=== PATIENT | female | born 1995 | race Caucasian/White ===

== ENCOUNTER → 2017-06-30 | Outpatient (CLI) | payer OTHER | END | disposition home or self-care (01) | LOC: LABWHC1 09:39 | PROVIDERS: ATTEND Pediatrics | DX: E03.9 Hypothyroidism, unspecified (principal) | CPT/HCPCS: 36415; 84443 ==

== ENCOUNTER → 2017-08-10 | Outpatient (CLI) | payer OTHER ==
--- NOTE | 2017-08-10 15:49 | US ---
EXAMINATION TYPE: US thyroid st tissue head/neck DATE OF EXAM: 08/10/2017 COMPARISON: Prior thyroid ultrasound July 04, 2010 CLINICAL HISTORY: E03.8 HYPOTHYROIDISM. Patient states being on thyroid meds. GLAND SIZE: Right Lobe: 4.8 x 1.7 x 1.4 cm Overall Parenchyma: heterogenous Left Lobe: 4.6 x 1.5 x 1.2 cm Overall Parenchyma: heterogeneous Isthmus Thickness: 0.3 cm NODULES RIGHT: # of nodules measured on right: 0 LEFT: # of nodules measured on left: 0 ISTHMUS: # of nodules measured in the isthmus: 0 Bilateral neck scanned, no evidence of lymphadenopathy. Bilateral thyroid lobes scanned. No prominent nodules or lesions identified. Both lobes appear hete rogenous. Thyroid gland remains normal in size but markedly heterogeneous appearance without discrete new suspi cious nodule. IMPRESSION: Overall stable findings, heterogeneous normal size thyroid without suspicious nodule.
== END | disposition home or self-care (01) ==
LOC: RADUSWWP 14:53
PROVIDERS: ATTEND Internal Medicine Endocrinology, Diabetes & Metabolism
DX: E03.8 Other specified hypothyroidism (principal)
CPT/HCPCS: 76536

== ENCOUNTER → 2017-09-08 | Outpatient (CLI) | payer OTHER ==
[2017-09-08 11:11] VITALS: BP 114/78; PULSE 64; RESP 16; TEMP 98.2; BMI 25.1
--- NOTE | 2017-09-08 12:10 | P.HPOB ---
History of Present Illness H&P Date: 09/08/17 Chief Complaint: The patient is here for her routine gynecologic exam. This is a 22-year-old G0 with an LMP of 08/22/2017. The patient has a history of polycystic ovarian syndrome and irregular menses. She was on the control patch in the past and had done well with the patch except she started having problems with the patch falling off during basketball games. She has been on oral contraception for the last 6 months. She states the 1st 2 months menses were predictable. She did have about 3 months with breakthrough bleeding during the 1st and 2nd week. This past month was normal without breakthrough bleeding. She is requesting to go back on the control patch since she is no longer playing competitive basketball. She became sexually active in March 2017, but was only with the partner for about one month. She is no longer seeing anybody at this time. Review of Systems Weight has been stable. She denies respiratory, cardiac, or G.I. problems. Past Medical History Past Medical History: Thyroid Disorder (Hypothyroidism following Yessenia's thyroiditis) Additional Past Medical History / Comment(s): History of headaches. 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 She does have a history of PCOS improved with hormonal contraception. Additional Past Surgical History / Comment(s): Oral surgery in 2000. Past Psychological History: No Psychological Hx Reported Smoking Status: Never smoker Past Alcohol Use History: Occasional (About 1 to 2 drinks per week.) Past Drug Use History: None Reported Additional History: Patient recently graduated from college with a business degree. She is single. She is currently managing a produce store. - Past Family History Mother Family Medical History: No Reported History Additional Family Medical History / Comment(s): Maternal grandmother had multiple myeloma. Paternal grandmother had breast cancer. Medications and Allergies Home Medications Medication Instructions Recorded Confirmed Type Drospir/Eth Estra/Levomefol Ca 1 each PO 09/08/17 History [Tydemy Tablet] Levothyroxine Sodium [Synthroid] DAILY 09/08/17 09/08/17 History Allergies Allergy/AdvReac Type Severity Reaction Status Date / Time No Known Allergies Allergy Verified 09/08/17 12:01 Exam - Vital Signs Vital signs: Vital Signs Temp Pulse Resp BP 09/08/17 11:02 98.2 F 64 16 114/78 Intake and Output 09/07/17 09/08/17 09/08/17 22:59 06:59 14:59 Other: Weight 81.647 kg Height 5'11", BMI 25.1. This is a well-developed well-nourished white female who is alert and oriented times 3 in no acute distress. HEENT: Within normal limits. NECK: Supple without mass or thyromegaly. CHEST AND LUNGS: Clear to auscultation. HEART: Regular rate and rhythm. BREASTS: Are without mass or discharge. AXILLARY EXAM: Negative for adenopathy. BACK: Negative for CVA tenderness. ABDOMEN: Soft, nontender, without palpable masses. PELVIC EXAM: Normal external genitalia. Cervix and vagina appear normal. There is no unusual discharge. There is no evidence of prolapse. The uterus is midposition, nongravid size and nontender. There are no palpable adnexal masses or tenderness. RECTAL EXAM: deferred EXTREMITIES: Nontender. IMPRESSION: 1. 22-year-old female with normal gynecologic exam. 2. History of PCOS with irregular menses improved with hormonal contraception. The patient has had occasional breakthrough bleeding with oral contraception. She is requesting to go back on the control patch. PLAN: 1. Pap smear was performed. 2. Self breast awareness was discussed. 3. GC and Chlamydia screening from the cervix has been obtained. 4. STD prevention was discussed. I have stressed the importance of limiting sexual partners and using condoms if she is to be sexually active. 5. The patient will be restarted on the Ortho Evra patch. She will use it as directed. She will start this point she normally would have started a new pack of control pills. An electronic prescription will be sent to [facility]. 6. We have discussed the HPV vaccination. If she decides to get this vaccination, she will go to the health department for this. 7. She will return in one year.
== END | disposition home or self-care (01) ==
LOC: WWCWWP 10:37
PROVIDERS: ATTEND Obstetrics & Gynecology
DX: Z01.419 Encounter for gynecological examination (general) (routine) without abnormal findings (principal); Z53.9 Procedure and treatment not carried out, unspecified reason

== ENCOUNTER → 2018-04-12 | Outpatient (CLI) | payer OTHER | LOC: LABWHC1 11:38 | PROVIDERS: ATTEND Internal Medicine Endocrinology, Diabetes & Metabolism | DX: E03.8 Other specified hypothyroidism (principal) | CPT/HCPCS: 36415; 84443 ==

== ENCOUNTER 2018-04-22 19:08 | Emergency (ER) | payer OTHER ==
[2018-04-22 19:30] VITALS: BP 130/76; PULSE 80; RESP 16; TEMP 98.2
--- NOTE | 2018-04-22 19:57 | ED ---
General Adult HPI - General Chief complaint: Extremity Injury, Lower Stated complaint: rt ankle injury Time Seen by Provider: 04/22/18 19:47 Source: patient, RN notes reviewed Mode of arrival: ambulatory Limitations: no limitations - History of Present Illness Initial comments: Patient 23-year-old female presented to the emergency room today with a chief complaint of injury to the right ankle that occurred earlier today when she was playing basketball. She states that she came down and rolled her right ankle. States she was able to keep playing. States that she does have some pain to the lateral aspect of the right ankle worse with certain movements. Denies any other complaints or symptoms. Patient denies any recent fever, chills, shortness of breath, chest pain, back pain, abdominal pain, headaches or visual changes, or any other complaints. - Related Data Home Medications Medication Instructions Recorded Confirmed Drospir/Eth Estra/Levomefol Ca 1 each PO 09/08/17 [Tydemy Tablet] Levothyroxine Sodium [Synthroid] DAILY 09/08/17 09/08/17 Previous Rx's Medication Instructions Recorded Norelgestromin/Ethin.estradiol 1 patch TRANSDERM DIRECTED 84 09/08/17 [Xulane Patch] Days #9 patch Ibuprofen [Motrin] 600 mg PO Q6HR PRN #40 day 04/22/18 Allergies Allergy/AdvReac Type Severity Reaction Status Date / Time No Known Allergies Allergy Verified 04/22/18 19:30 Review of Systems ROS Statement: Those systems with pertinent positive or pertinent negative responses have been documented in the HPI. ROS Other: All systems not noted in ROS Statement are negative. Past Medical History Past Medical History: Thyroid Disorder Additional Past Medical History / Comment(s): History of headaches. 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 She does have a history of PCOS improved with hormonal contraception. History of Any Multi-Drug Resistant Organisms: None Reported Additional Past Surgical History / Comment(s): Oral surgery in 2000. Past Psychological History: No Psychological Hx Reported Smoking Status: Never smoker Past Alcohol Use History: Occasional Past Drug Use History: None Reported - Past Family History Mother Family Medical History: No Reported History Additional Family Medical History / Comment(s): Maternal grandmother had multiple myeloma. Paternal grandmother had breast cancer. General Exam - General Exam Comments Initial Comments: General: The patient is awake and alert, in no distress, and does not appear acutely ill. Musculoskeletal: Normal appearance right ankle no obvious deformity. No tenderness to the right ear down to the right foot. Mild tenderness in the ATFL area of the right side. Pedal pulses 2+. Sensations intact. Shows good range of motion. Neurological: A&O x 3. CN II-XII intact, There are no obvious motor or sensory deficits. Coordination appears grossly intact. Speech is normal. Skin: Skin is warm and dry and no rashes or lesions are noted. Psychiatric: Normal mood and affect. Limitations: no limitations Course Vital Signs 04/22/18 19:27 Temperature 98.2 F Pulse Rate 80 Respiratory 16 Rate Blood Pressure 130/76 O2 Sat by Pulse 100 Oximetry Medical Decision Making - Medical Decision Making X-ray reviewed negative for any acute fracture dislocation. Patient advised ice elevate the affected area and follow-up in 7-10 days if symptoms persist. Disposition Clinical Impression: Ankle sprain Disposition: HOME SELF-CARE Condition: Good Instructions: Ankle Sprain (ED) Additional Instructions: Please follow-up in 7-10 days for repeat x-rays if symptoms persist. Please continue to ice elevate the affected area at least 4 times daily for 20 minutes at a time. Please return to emergency room for any other concerns. Prescriptions: Ibuprofen [Motrin] 600 mg PO Q6HR PRN #40 day PRN Reason: Pain Is patient prescribed a controlled substance at d/c from ED?: No Referrals: Donald Goyal MD [Primary Care Provider] - 1-2 days Time of Disposition: 20:42
--- NOTE | 2018-04-22 20:20 | XR ---
EXAMINATION TYPE: XR ankle complete RT DATE OF EXAM: 04/22/2018 COMPARISON: NONE HISTORY: Ankle pain TECHNIQUE: 3 views FINDINGS: I see no fracture nor dislocation. Ankle mortise is anatomic. Joint spaces are normal. IMPRESSION: Negative right ankle exam.
== END 2018-04-22 20:51 | disposition home or self-care (01) ==
LOC: EC 19:08
DX: S93.401A Sprain of unspecified ligament of right ankle, initial encounter (principal); E07.9 Disorder of thyroid, unspecified; Z79.3 Long term (current) use of hormonal contraceptives; Z79.899 Other long term (current) drug therapy; X50.1XXA Overexertion from prolonged static or awkward postures, initial encounter; Y93.67 Activity, basketball; Y92.219 Unspecified school as the place of occurrence of the external cause
CPT/HCPCS: 99283

== ENCOUNTER → 2018-10-01 | Outpatient (CLI) | payer BC | END | disposition home or self-care (01) | LOC: LABWHC1 11:39 | PROVIDERS: ATTEND Internal Medicine Endocrinology, Diabetes & Metabolism | DX: E03.8 Other specified hypothyroidism (principal) | CPT/HCPCS: 36415; 84443; 86376 ==

== ENCOUNTER → 2019-01-25 | Outpatient (CLI) | payer BC ==
[2019-01-25 08:12] VITALS: BP 123/80; PULSE 83; RESP 16; TEMP 98.2; BMI 24.5
--- NOTE | 2019-01-25 08:42 | P.HPOB ---
History of Present Illness H&P Date: 01/25/19 Chief Complaint: The patient is here for her routine gynecologic exam. This is a 24-year-old G0 with an LMP of 01/16/2019. The patient has been on Xulane patches. She has occasionally noticed a small amount of spotting during the third week of each patch cycle. She is otherwise without complaints and has done that her with the patches compared to control pills. She has not been sexually active during the past year. Review of Systems The patient has lost 9 pounds over the last year. She denies respiratory, cardiac, or G.I. problems. Past Medical History Past Medical History: Thyroid Disorder Additional Past Medical History / Comment(s): Hypothyroidism following Yessenia's thyroiditis. History of headaches. 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 She does have a history of PCOS improved with hormonal contraception. History of Any Multi-Drug Resistant Organisms: None Reported Additional Past Surgical History / Comment(s): Oral surgery in 2000. Past Psychological History: No Psychological Hx Reported Smoking Status: Never smoker Past Alcohol Use History: Occasional (1-2 drinks per week) Past Drug Use History: None Reported Additional History: She is single and has not seen anybody at this time. 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 - Past Family History Mother Family Medical History: No Reported History Additional Family Medical History / Comment(s): Maternal grandmother had multiple myeloma. Paternal grandmother had breast cancer. Medications and Allergies Home Medications Medication Instructions Recorded Confirmed Type Levothyroxine Sodium [Synthroid] 1 tab PO DAILY 09/08/17 01/25/19 History Norelgestromin/Ethin.estradiol 1 patch TRANSDERM DIRECTED 84 09/08/17 01/25/19 Rx [Xulane Patch] Days #9 patch Ibuprofen [Motrin] 600 mg PO Q6HR PRN #40 day 04/22/18 Rx Allergies Allergy/AdvReac Type Severity Reaction Status Date / Time No Known Allergies Allergy Verified 01/25/19 08:07 Exam Vital Signs Temp Pulse Resp BP Pulse Ox 01/25/19 08:09 98.2 F 83 16 123/80 98 Intake and Output 01/24/19 01/25/19 01/25/19 22:59 06:59 14:59 Other: Weight 77.564 kg Height 5 feet 10 inches, weight 171 pounds, BMI 24.5. This is a well-developed well-nourished white female who is alert and oriented times 3 in no acute distress. HEENT: Within normal limits. NECK: Supple without mass or thyromegaly. CHEST AND LUNGS: Clear to auscultation. HEART: Regular rate and rhythm. BREASTS: Are without mass or discharge. AXILLARY EXAM: Negative for adenopathy. BACK: Negative for CVA tenderness. ABDOMEN: Soft, nontender, without palpable masses. PELVIC EXAM: Normal external genitalia. Cervix and vagina appear normal. There is a small amount of old menstrual blood in the vagina. There is no unusual discharge. There is no evidence of prolapse. The uterus is mid to anterior in position, nongravid size and nontender. There are no palpable adnexal masses or tenderness. RECTAL EXAM: Deferred. EXTREMITIES: Nontender. IMPRESSION: 1. 24-year-old female on Xulane patches for menstrual regulation with normal gynecologic exam. 2. History of PCOS improved with Xulane patches. PLAN: 1. Pap smear was deferred since she had a normal 09/08/2017. 2. Self breast awareness was discussed with the patient. 3. GC and Chlamydia testing was obtained from the cervix. 4. STD prevention was discussed. I have stressed importance of limiting sexual partners and using condoms if she is sexually active. 5. She will continue Xulane patches at this time. The electronic prescription will be sent to [facility]. We discussed the option of a trial off of the patches to see if her menstrual periods are regular. She is interested in doing this. She will choose a time in the upcoming year when she will discontinue the patches and she will keep a menstrual calendar. She will call if questions or problems. She understands that if there is any any chance of being sexually active that she should use a method of control such as resuming the Xulane patches. 6. She was advised to return in one year for her annual well woman exam.
== END ==
LOC: WWCWWP 07:58
PROVIDERS: ATTEND Obstetrics & Gynecology
DX: Z53.9 Procedure and treatment not carried out, unspecified reason (principal)

== ENCOUNTER → 2019-04-04 | Outpatient (CLI) | payer BC | END | disposition home or self-care (01) | LOC: LABWHC1 10:27 | PROVIDERS: ATTEND Internal Medicine Endocrinology, Diabetes & Metabolism | DX: E03.8 Other specified hypothyroidism (principal) | CPT/HCPCS: 36415; 84443 ==

== ENCOUNTER → 2019-04-21 | Outpatient (CLI) | payer BC | END | disposition home or self-care (01) | LOC: LABWHC1 12:18 | PROVIDERS: ATTEND Internal Medicine Endocrinology, Diabetes & Metabolism | DX: E03.8 Other specified hypothyroidism (principal) | CPT/HCPCS: 36415; 84443; 86376 ==

== ENCOUNTER → 2019-10-02 | Outpatient (CLI) | payer BC | END | disposition home or self-care (01) | LOC: LABWHC1 08:35 | PROVIDERS: ATTEND Internal Medicine Endocrinology, Diabetes & Metabolism | DX: E28.2 Polycystic ovarian syndrome (principal); E03.8 Other specified hypothyroidism | CPT/HCPCS: 36415; 82024; 82533; 82626; 83498; 84146; 84443 ==

== ENCOUNTER → 2019-11-21 | Outpatient (CLI) | payer BC | LOC: LABWHC1 11:43 → EDSTATUS 11:45 | PROVIDERS: ATTEND Physician Assistant Medical | DX: L70.8 Other acne (principal) | CPT/HCPCS: 36415; 84132 ==

== ENCOUNTER 2020-01-02 14:08 | Emergency (ER) | payer BC ==
[2020-01-02 14:13] VITALS: RESP 18
[2020-01-02] MEDS ORDERED: SODIUM CHLORIDE 0.9% 1,000 ML IV ONE (14:25)
[2020-01-02] MEDS ORDERED: SODIUM CHLORIDE 0.9% 500 ML 500 ML IV ONE (14:25)
[2020-01-02] MEDS ORDERED: SODIUM CHLORIDE 0.9% 1,000 ML IV SCH (14:30)
[2020-01-02] MEDS ORDERED: ACETAMINOPHEN TAB 325 MG TAB PO STA (14:41)
[2020-01-02 14:45] LABS: Basophils % (A) 0 %; Eosinophils # (A) 0.2 k/uL (0-0.7); Eosinophils % (A) 2 %; HGB 14.5 gm/dL (11.4-16.0); Lymphocytes # (A) 0.7 k/uL (1.0-4.8); Lymphocytes % (A) 6 %; MCH 29.7 pg (25.0-35.0); MCHC 32.2 g/dL (31.0-37.0); MCV 92.3 fL (80.0-100.0); Mean Platelet Volume 7.7; Monocytes # (A) 0.7 k/uL (0-1.0); Monocytes % (A) 6 %; Neutrophils # (A) 9.2 k/uL (1.3-7.7); Neutrophils % (A) 85 %; Platelet Count 231 k/uL (150-450); RBC 4.87 m/uL (3.80-5.40); RDW 12.4 % (11.5-15.5); WBC 10.8 k/uL (3.8-10.6)
[2020-01-02 14:47] LABS: Appearance,Urine Clear (Clear); Bilirubin,Urine Negative (Negative); Blood,Urine Negative (Negative); Color,Urine Colorless; Glucose,Urine (UA) Negative (Negative); Ketones,Urine Negative (Negative); Leukocyte Esterase,Urine Negative (Negative); Nitrite,Urine Negative (Negative); PH, Urine 6.5 (5.0-8.0); Protein,Urine Negative (Negative); Specific Gravity,Urine 1.003 (1.001-1.035); Urobilinogen,Urine <2.0 mg/dL (<2.0)
[2020-01-02 14:54] LABS: ALT 22 U/L (4-34); AST 31 U/L (14-36); African American GFR (CKD) >90 (>60 ml/min/1.73 sqM); Albumin 4.7 g/dL (3.5-5.0); Alkaline Phosphatase 72 U/L (38-126); Amylase 62 U/L (30-110); Anion Gap 8 mmol/L; Blood Urea Nitrogen 12 mg/dL (7-17); Calcium 9.6 mg/dL (8.4-10.2); Carbon Dioxide 25 mmol/L (22-30); Chloride 104 mmol/L (98-107); Glucose 111 mg/dL (74-99); Non-African American GFR(CKD) >90 (>60 ml/min/1.73 sqM); Sodium 137 mmol/L (137-145); Total Bilirubin 0.6 mg/dL (0.2-1.3); Total Protein 7.5 g/dL (6.3-8.2)
--- NOTE | 2020-01-02 15:29 | CT ---
EXAMINATION TYPE: CT abdomen pelvis w con DATE OF EXAM: 01/02/2020 HISTORY: Fever, low back pain and nausea. CT DLP: 797.2mGycm Automated Exposure Control for Dose Reduction was Utilized. CONTRAST: CT scan of the abdomen and pelvis is performed without oral but with IV Contrast, patient injected wi th 100 mL of Isovue 300. COMPARISON: None. FINDINGS: LUNG BASES: No significant abnormality is appreciated. LIVER/GB: No significant abnormality is appreciated. PANCREAS: No significant abnormality is seen. SPLEEN: No significant abnormality is seen. ADRENALS: No significant abnormality is seen. KIDNEYS: Symmetric cortical medullary uptake and excretion without hydronephrosis seen bilaterally . BOWEL: Suboptimal evaluation of bowel without enteric contrast and patient having little intra-abdomi nal fat. There is nondilated appendix ascending from the cecum along the posterior aspect. There is n o suspicious small or large bowel dilatation. Mild to moderate amount of colonic fecal prominence in the right and transverse colon. Mild to moderate wall thickening involving the terminal ileum favors product of poor distention coronal image 32 for reference. UTERUS/ADNEXA: Heterogeneous slightly anteverted uterus extends to right of midline. Trace free fluid right pelvis axial image 75 is nonspecific. No suspicious adnexal masses. Ovaries normal in size and symmetric axial image 76.0 LYMPH NODES: No greater than 1cm abdominal or pelvic lymph nodes are appreciated. OSSEOUS STRUCTURES: No significant abnormality is seen. OTHER: No significant additional abnormality is seen. IMPRESSION: No significant acute finding is clearly seen to account for patient's clinical symptoms o f lower abdominal pain and fever. Overall no bowel obstruction is present.
--- NOTE | 2020-01-02 16:55 | XR ---
EXAMINATION TYPE: XR chest 2V DATE OF EXAM: 01/02/2020 COMPARISON: 02/19/1998 INDICATION: Fever low back pain TECHNIQUE: Frontal and lateral views of the chest are obtained. FINDINGS: The heart size is normal. The pulmonary vasculature is normal. There is mild increased lung markings in the frontal projection along the diaphragms. Subsegmental at electasis should be considered. Lungs otherwise are clear.. IMPRESSION: 1. Mild anterior subsegmental atelectasis greatest along the left diaphragm.
[2020-01-02 17:00] VITALS: BP 124/69; PULSE 80; TEMP 99.2
[2020-01-02] MEDS ORDERED: KETOROLAC 15 MG/ML 1 ML VIAL IVP STA (17:26)
--- NOTE | 2020-01-02 17:27 | ED ---
Abdominal Pain HPI - General Chief Complaint: Abdominal Pain Stated Complaint: low back pain Time Seen by Provider: 01/02/20 14:15 Source: patient Mode of arrival: ambulatory Limitations: no limitations - History of Present Illness Initial Comments: 24yo female with history of PCOS presenting for fevers, sore throat, lower abdominal discomfort diffusely with low back pain x 2 days. Patient states she has had some cramping in the lower abdomen and back for the past 2-3 days. She states that she developed fever, slight headache today. She has noticed since her trip to [place] where she went hiking she has had some congestion and sore throat but thought this was allergies. Denies significant cough states mild if any. Patietn denies urinary symptoms. Patient denies diarrhea, vomiting. Patient states she did have blood in her stool recently after having a hard stool. She states this frequently happens when she has difficulty having a bowel movement and she was concerned she may have hemorrhoid. Patient denies ear pain. Denies rectal pain at this time, onyl with bowel movement. Patient denies chest pain or SOB. Patient was concerned of covid. Denies rashes, or tick bites. Patient has no additional complaints. Upon arrival she appear nontoxic in no acute distress. - Related Data Home Medications Medication Instructions Recorded Confirmed Doxycycline Monohydrate [Monodox] 100 mg PO DAILY 01/02/20 01/02/20 Levothyroxine Sodium [Synthroid] 75 mcg PO DAILY 01/02/20 01/02/20 Spironolactone 12.5 mg PO DAILY 01/02/20 01/02/20 metFORMIN HCL 500 mg PO BID 01/02/20 01/02/20 Allergies Allergy/AdvReac Type Severity Reaction Status Date / Time No Known Allergies Allergy Verified 01/02/20 16:39 Review of Systems ROS Statement: Those systems with pertinent positive or pertinent negative responses have been documented in the HPI. ROS Other: All systems not noted in ROS Statement are negative. Past Medical History Past Medical History: Thyroid Disorder Additional Past Medical History / Comment(s): Hypothyroidism following H ashimoto's thyroiditis. History of headaches. 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 She does have a history of PCOS improved with hormonal contraception. History of Any Multi-Drug Resistant Organisms: None Reported Additional Past Surgical History / Comment(s): Oral surgery in 2000. Past Psychological History: No Psychological Hx Reported Past Alcohol Use History: Occasional Past Drug Use History: None Reported - Past Family History Mother Family Medical History: No Reported History Additional Family Medical History / Comment(s): Maternal grandmother had multiple myeloma. Paternal grandmother had breast cancer. General Exam - General Exam Comments Initial Comments: General: The patient is awake and alert, in no distress, and does not appear acutely ill. Eye: +3 mm pupils are equal, round and reactive to light, extra-ocular movements are intact. No nystagmus. There is normal conjunctiva bilaterally. No signs of icterus. No photophobia Ears, nose, mouth and throat: There are moist mucous membranes and no oral lesions. Oropharynx was not erythematous there is no tonsillar enlargement exudates or lesions. Uvula midline. No tenderness to palpation of the mastoid. No anterior cervical lymphadenopathy. Rhinorrhea, clear and bilateral nares. No tripoding, no drooling. Neck: The neck is supple, there is no tenderness or JVD. No nuchal rigidity negative Brudzinski and Kernig Cardiovascular: There is a regular rate and rhythm. No murmur, rub or gallop is appreciated. Respiratory: Lungs are clear to auscultation, respirations are non-labored, breath sounds are equal. No wheezes, stridor, rales, or rhonchi. No retractions or abdominal breathing. Gastrointestinal: Soft, non-distended, minimal tenderness on exam, diffuse of lower abdomen, some superior bladder margin tenderness, abdomen without masses or organomegaly noted. There is no rebound or guarding present. Bowel sounds are unremarkable. Musculoskeletal: Normal ROM, no tenderness. Strength 5/5. Sensation intact. Radial pulses equal bilaterally 2+. Neurological: A&O x 3. CN II-XII intact grossly, There are no obvious motor or sensory deficits. Coordination appears grossly intact. Speech appears normal, no muffling. Skin: Skin is warm and dry and no rashes or lesions are noted. No extremity edema Psychiatric: Cooperative Limitations: no limitations Course Vital Signs 01/02/20 01/02/20 01/02/20 14:10 14:26 15:50 Temperature 100.4 F H 100.9 F H 98.5 F Pulse Rate 63 70 Respiratory 18 18 Rate Blood Pressure 131/83 120/66 O2 Sat by Pulse 99 100 Oximetry 01/02/20 16:58 Temperature 99.2 F Pulse Rate 80 Respiratory 18 Rate Blood Pressure 124/69 O2 Sat by Pulse 97 Oximetry Medical Decision Making - Medical Decision Making Nontoxic-appearing 24-year-old female presenting with fever she has had some congestion and sore throat which she thought was related to season allergies as well as lower pelvic pain which she states she does have paced QRS denies unilateral pain hCG negative. CT no acute findings. No appendicitis. Patient is very mild leukocytosis. No exudates on tonsillar examination mild redness. Heterophile negative. No nuchal rigidity. Or signs of meningismus. chest x-ray clear. TSH WNL. After discussing findings of labs/PE with patient she is agreeable to discharge and states that she was concerned more so of covid. patient covid testing pending. Ptaient is to return for worsening symptoms, we discussed symptomatic treatment. Recommended pcp f/u in 24 hours. Discussed labs/imaging, history in detail with Dr. Espinosa who is agreeable to care plan and discharge. At this time in disease process, symptoms, clinical findings most consistent with viral syndrome. - Lab Data Result diagrams: 01/02/20 14:34 01/02/20 14:34 Lab Results 01/02/20 01/02/20 01/02/20 Range/Units 14:34 14:34 14:34 WBC 10.8 H (3.8-10.6) k/uL RBC 4.87 (3.80-5.40) m/uL Hgb 14.5 (11.4-16.0) gm/dL Hct 45.0 (34.0-46.0) % MCV 92.3 (80.0-100.0) fL MCH 29.7 (25.0-35.0) pg MCHC 32.2 (31.0-37.0) g/dL RDW 12.4 (11.5-15.5) % Plt Count 231 (150-450) k/uL Neutrophils % 85 % Lymphocytes % 6 % Monocytes % 6 % Eosinophils % 2 % Basophils % 0 % Neutrophils # 9.2 H (1.3-7.7) k/uL Lymphocytes # 0.7 L (1.0-4.8) k/uL Monocytes # 0.7 (0-1.0) k/uL Eosinophils # 0.2 (0-0.7) k/uL Basophils # 0.0 (0-0.2) k/uL Sodium 137 (137-145) mmol/L Potassium 4.0 (3.5-5.1) mmol/L Chloride 104 (98-107) mmol/L Carbon Dioxide 25 (22-30) mmol/L Anion Gap 8 mmol/L BUN 12 (7-17) mg/dL Creatinine 0.80 (0.52-1.04) mg/dL Est GFR (CKD-EPI)AfAm >90 (>60 ml/min/1.73 sqM) Est GFR (CKD-EPI)NonAf >90 (>60 ml/min/1.73 sqM) Glucose 111 H (74-99) mg/dL Plasma Lactic Acid Piotr (0.7-2.0) mmol/L Calcium 9.6 (8.4-10.2) mg/dL Total Bilirubin 0.6 (0.2-1.3) mg/dL AST 31 (14-36) U/L ALT 22 (4-34) U/L Alkaline Phosphatase 72 (38-126) U/L Troponin I (0.000-0.034) ng/mL Total Protein 7.5 (6.3-8.2) g/dL Albumin 4.7 (3.5-5.0) g/dL Amylase 62 (30-110) U/L Lipase 111 (23-300) U/L TSH (0.465-4.680) mIU/L Urine Color Colorless Urine Appearance Clear (Clear) Urine pH 6.5 (5.0-8.0) Ur Specific [place] 1.003 (1.001-1.035) Urine Protein Negative (Negative) Urine Glucose (UA) Negative (Negative) Urine Ketones Negative (Negative) Urine Blood Negative (Negative) Urine Nitrite Negative (Negative) Urine Bilirubin Negative (Negative) Urine Urobilinogen <2.0 (<2.0) mg/dL Ur Leukocyte Esterase Negative (Negative) Urine HCG, Qual (Not Detectd) Heterophile Antibody (Negative) Group A Strep Rapid (Negative) 01/02/20 01/02/20 01/02/20 Range/Units 14:34 14:34 14:34 WBC (3.8-10.6) k/uL RBC (3.80-5.40) m/uL Hgb (11.4-16.0) gm/dL Hct (34.0-46.0) % MCV (80.0-100.0) fL MCH (25.0-35.0) pg MCHC (31.0-37.0) g/dL RDW (11.5-15.5) % Plt Count (150-450) k/uL Neutrophils % % Lymphocytes % % Monocytes % % Eosinophils % % Basophils % % Neutrophils # (1.3-7.7) k/uL Lymphocytes # (1.0-4.8) k/uL Monocytes # (0-1.0) k/uL Eosinophils # (0-0.7) k/uL Basophils # (0-0.2) k/uL Sodium (137-145) mmol/L Potassium (3.5-5.1) mmol/L Chloride (98-107) mmol/L Carbon Dioxide (22-30) mmol/L Anion Gap mmol/L BUN (7-17) mg/dL Creatinine (0.52-1.04) mg/dL Est GFR (CKD-EPI)AfAm (>60 ml/min/1.73 sqM) Est GFR (CKD-EPI)NonAf (>60 ml/min/1.73 sqM) Glucose (74-99) mg/dL Plasma Lactic Acid Piotr 0.8 (0.7-2.0) mmol/L Calcium (8.4-10.2) mg/dL Total Bilirubin (0.2-1.3) mg/dL AST (14-36) U/L ALT (4-34) U/L Alkaline Phosphatase (38-126) U/L Troponin I (0.000-0.034) ng/mL Total Protein (6.3-8.2) g/dL Albumin (3.5-5.0) g/dL Amylase (30-110) U/L Lipase (23-300) U/L TSH (0.465-4.680) mIU/L Urine Color Urine Appearance (Clear) Urine pH (5.0-8.0) Ur Specific [place] (1.001-1.035) Urine Protein (Negative) Urine Glucose (UA) (Negative) Urine Ketones (Negative) Urine Blood (Negative) Urine Nitrite (Negative) Urine Bilirubin (Negative) Urine Urobilinogen (<2.0) mg/dL Ur Leukocyte Esterase (Negative) Urine HCG, Qual Not Detected (Not Detectd) Heterophile Antibody Negative (Negative) Group A Strep Rapid (Negative) 01/02/20 01/02/20 01/02/20 Range/Units 15:45 15:53 15:53 WBC (3.8-10.6) k/uL RBC (3.80-5.40) m/uL Hgb (11.4-16.0) gm/dL Hct (34.0-46.0) % MCV (80.0-100.0) fL MCH (25.0-35.0) pg MCHC (31.0-37.0) g/dL RDW (11.5-15.5) % Plt Count (150-450) k/uL Neutrophils % % Lymphocytes % % Monocytes % % Eosinophils % % Basophils % % Neutrophils # (1.3-7.7) k/uL Lymphocytes # (1.0-4.8) k/uL Monocytes # (0-1.0) k/uL Eosinophils # (0-0.7) k/uL Basophils # (0-0.2) k/uL Sodium (137-145) mmol/L Potassium (3.5-5.1) mmol/L Chloride (98-107) mmol/L Carbon Dioxide (22-30) mmol/L Anion Gap mmol/L BUN (7-17) mg/dL Creatinine (0.52-1.04) mg/dL Est GFR (CKD-EPI)AfAm (>60 ml/min/1.73 sqM) Est GFR (CKD-EPI)NonAf (>60 ml/min/1.73 sqM) Glucose (74-99) mg/dL Plasma Lactic Acid Piotr (0.7-2.0) mmol/L Calcium (8.4-10.2) mg/dL Total Bilirubin (0.2-1.3) mg/dL AST (14-36) U/L ALT (4-34) U/L Alkaline Phosphatase (38-126) U/L Troponin I <0.012 (0.000-0.034) ng/mL Total Protein (6.3-8.2) g/dL Albumin (3.5-5.0) g/dL Amylase (30-110) U/L Lipase (23-300) U/L TSH 1.070 (0.465-4.680) mIU/L Urine Color Urine Appearance (Clear) Urine pH (5.0-8.0) Ur Specific [place] (1.001-1.035) Urine Protein (Negative) Urine Glucose (UA) (Negative) Urine Ketones (Negative) Urine Blood (Negative) Urine Nitrite (Negative) Urine Bilirubin (Negative) Urine Urobilinogen (<2.0) mg/dL Ur Leukocyte Esterase (Negative) Urine HCG, Qual (Not Detectd) Heterophile Antibody (Negative) Group A Strep Rapid Negative (Negative) Disposition Clinical Impression: Fever, Lower abdominal pain, Hemorrhoid, Headache, Pharyngitis Disposition: HOME SELF-CARE Condition: Good Instructions (If sedation given, give patient instructions): Pharyngitis (ED), Abdominal Pain (ED) Additional Instructions: Please use medication as discussed. Please follow-up with family doctor in the next 24 hours, return for worsening symptoms--NO WORKS UNTIL SYMPTOMS FREE AND FEVER FREE FOR 48 HOURS. Please return to emergency room if the symptoms increase or worsen or for any other concerns. Is patient prescribed a controlled substance at d/c from ED?: No Referrals: Donald Goyal MD [Primary Care Provider] - 1-2 days Time of Disposition: 17:27
[2020-01-03 14:51] LABS: C. trachomatis,PCR Negative (Neg,Equiv); Chlamydia trachomatis Source Vagina; N. gonorrhoeae,PCR Negative (Neg,Equiv); Neisseria Source Vagina
== END 2020-01-02 16:45 | disposition home or self-care (01) ==
LOC: EC 14:08
DX: K64.9 Unspecified hemorrhoids (principal); R10.30 Lower abdominal pain, unspecified; J02.9 Acute pharyngitis, unspecified; D72.829 Elevated white blood cell count, unspecified; E03.9 Hypothyroidism, unspecified; E06.3 Autoimmune thyroiditis; Z79.890 Hormone replacement therapy; Z79.899 Other long term (current) drug therapy; Z79.84 Long term (current) use of oral hypoglycemic drugs; Z20.828 Contact with and (suspected) exposure to other viral communicable diseases
CPT/HCPCS: 36415; 80053; 84443; 82150; 83605; 83690; 84484; 85025; 86308; 81003; 81025; 87040; 87808; 87491; 87591; 87070; 87081; 87430; 71046; 74177; 99284; 96374; 96361 ×3; U0003; J1885; Q9967

== ENCOUNTER → 2020-01-30 | Outpatient (CLI) | payer BC ==
[2020-01-30 08:01] VITALS: BP 121/78; PULSE 62; RESP 16; TEMP 98.4
--- NOTE | 2020-01-30 08:51 | P.PN ---
Progress Note - Text Progress Note Date: 01/30/20 Chief Complaint: Acne and irregular menses HPI: This is a 25-year-old G0 with an LMP of November 2019. The patient has not been sexually active during the past year. She has a long history of PCOS with oligomenorrhea and acne. She was previously using control patch up until March 2019. She discontinued the patch to see if she would have regular menses. She had menstrual periods in April and July of this year. She saw her patient service representative, Dr. Franks, who did some endocrine workup and started her on metformin and spironolactone for PCOS and acne. She had light menstrual periods in September and November of this year. She states her acne has not improved at all. She denies facial hair growth. She is requesting to go on control pills. She states her acne was much improved with the control patch, but now would prefer taking pills. She is not seeing anybody at this time and is planning on starting a family in the near future. ROS: Unremarkable. She was seen in the emergency room for pharyngitis on 01/02/2020 and this has resolved. PE: Blood pressure: 121/78, Height: 5 feet 11 inches, Weight: 163 pounds, Temperature: 98.4, Pulse: 100%. This is a well developed, well nourished, and white female who is alert and orientedx3, in no acute distress. On her face, there is mild to moderate facial acne. No unusual facial hair growth is noted. CT scan done on 01/02/2020 was unremarkable and showed ovaries to be normal in size. Impression: 1. 25-year-old female with oligomenorrhea and acne consistent with PCOS. 2. Acne not improved with metformin and spironolactone as prescribed by her patient service representative. 3. The patient is requesting to be started on oral contraception for her oligomenorrhea and acne. Plan: 1. We have had a long discussion regarding PCOS and oral contraception. I think she is a candidate to start oral contraception for her symptoms since she is not interested in becoming in the near future. She will be started on Tri-Sprintec one by mouth daily and she'll start this on Wednesday. She understands that she may have some irregular bleeding especially during the first pack. We have discussed risks with control pills including slight increased risk for blood clots. We have also discussed possible side effects w ith the control pills. The electronic prescription for this was sent to [facility] on [facility]. 2. She will discuss with her patient service representative if there is any need to continue the metformin and spironolactone, and if not she will discontinue these. 3. She will return in approximately 3-4 months for her annual examination. She will call if she has any questions or problems. Time spent with the patient: 20 minutes
== END | disposition home or self-care (01) ==
LOC: WWCWWP 07:46
PROVIDERS: ATTEND Obstetrics & Gynecology
DX: Z53.9 Procedure and treatment not carried out, unspecified reason (principal)

== ENCOUNTER → 2020-03-29 | Outpatient (CLI) | payer BC | END | disposition home or self-care (01) | LOC: LABWHC1 12:30 | PROVIDERS: ATTEND Internal Medicine Endocrinology, Diabetes & Metabolism | DX: E03.8 Other specified hypothyroidism (principal) | CPT/HCPCS: 36415; 84443 ==

== ENCOUNTER → 2020-10-07 | Outpatient (CLI) | payer BC | END | disposition home or self-care (01) | LOC: LABWHC1 12:20 | PROVIDERS: ATTEND Internal Medicine Endocrinology, Diabetes & Metabolism | DX: E03.8 Other specified hypothyroidism (principal) | CPT/HCPCS: 36415; 84443 ==

== ENCOUNTER → 2021-02-25 | Outpatient (CLI) | payer BC ==
[2021-02-25 09:34] VITALS: BP 110/76; PULSE 77; RESP 18; TEMP 98.1
--- NOTE | 2021-02-25 10:21 | P.HPOB ---
History of Present Illness H&P Date: 02/25/21 Chief Complaint: The patient is here for her routine gynecologic exam. This is a 26-year-old G0 with an LMP of 02/24/2021. She has a history of PCOS is restarted oral contraception because of irregular and infrequent menstrual periods. Prior to restarting oral contraception, she was put on metformin by her frozen pie maker. She has not been sexually active during the past year and is committed to maintaining abstinence. Her menstrual periods are regular on oral contraception. She is now being seen by a flavor maker who prescribed isotretinoin. She is committed to not get at this time while she is on this medication and will do this with abstinence and oral contraception. Review of Systems She has lost 3 pounds over the past 2 years. She denies respiratory, cardiac, or GI problems. Past Medical History Past Medical History: Thyroid Disorder Additional Past Medical History / Comment(s): Hypothyroidism following Yessenia's thyroiditis. History of headaches. 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 She does have a history of PCOS improved with hormonal contraception. History of Any Multi-Drug Resistant Organisms: None Reported Additional Past Surgical History / Comment(s): Oral surgery in 2000. Past Psychological History: No Psychological Hx Reported Smoking Status: Never smoker Past Alcohol Use History: None Reported Past Drug Use History: None Reported Additional History: She is single and is seeing somebody at this time but is committed to abstinence. She works in the office at [employer]. - Past Family History Mother Family Medical History: No Reported History Additional Family Medical History / Comment(s): Maternal grandmother had multiple myeloma. Paternal grandmother had breast cancer. Medications and Allergies Home Medications Medication Instructions Recorded Confirmed Type Levothyroxine Sodium [Synthroid] 75 mcg PO DAILY 01/02/20 02/25/21 History Isak 1 tab PO HS 02/25/21 02/25/21 History Omeprazole [PriLOSEC] 20 mg PO AC-[id number] 02/25/21 02/25/21 History metFORMIN HCL ER [Glucophage XR] 500 mg PO HS 02/25/21 02/25/21 History Allergies Allergy/AdvReac Type Severity Reaction Status Date / Time No Known Allergies Allergy Verified 02/25/21 09:25 Exam Vital Signs Temp Pulse Resp BP Pulse Ox 02/25/21 09:28 98.1 F 77 18 110/76 100 Intake and Output 02/24/21 02/25/21 02/25/21 22:59 06:59 14:59 Other: Weight 76.204 kg Height 5 feet 10 inches, weight 168 pounds, BMI 24.1. This is a well-developed well-nourished white female who is alert and oriented times 3 in no acute distress. HEENT: Within normal limits. NECK: Supple without mass or thyromegaly. CHEST AND LUNGS: Clear to auscultation. HEART: Regular rate and rhythm. BREASTS: Are without mass or discharge. AXILLARY EXAM: Negative for adenopathy. BACK: Negative for CVA tenderness. ABDOMEN: Soft, nontender, without palpable masses. PELVIC EXAM: Normal external genitalia. Cervix and vagina appear normal with a small amount of menstrual type blood in the vagina. There is no unusual discharge. There is no evidence of prolapse. The uterus is midposition, nongravid size and nontender. There are no palpable adnexal masses or tenderness. RECTAL EXAM: Deferred. EXTREMITIES: Nontender. IMPRESSION: 1. 26-year-old female with history of PCOS and oligomenorrhea, doing well on oral contraception. 2. Normal gynecologic exam. 3. History of acne planning to start isotretinoin. Planning to avoid using abstinence and oral contraception as her methods of control. PLAN: 1. Pap smear was performed. This will be cytology only. 2. Self breast awareness was discussed with the patient. We have also discussed symptoms associated with inflammatory breast cancer. 3. I have stressed the importance of not getting and actively preventing if she is on isotretinoin. She understands this is known to cause defects. She is committed to abstinence and is also on oral contraception for menstrual cycle regulation and history of PCOS. If she is sexually active I have recommended that she use condoms. 4. The patient is on Isak OCs and is doing well on this. She is uncertain as to the formulation of these control pills and will call with the numbers and letters in the name of her oral contraception pills. After she calls this in, I will send no chronic prescription to [email or web address] pharmacy on [facility]. 5. She has asked my opinion about the metformin that she was prescribed by her frozen pie maker prior to being on oral contraception. The metformin is for her history of PCOS. I do not feel that there would be much benefit in continuing the metformin while she is on oral contraception. She will discuss this with her frozen pie maker. 6. She was advised to return in one year for her annual well woman exam.
== END ==
LOC: WWCWWP 09:12
PROVIDERS: ATTEND Obstetrics & Gynecology
DX: Z53.9 Procedure and treatment not carried out, unspecified reason (principal)

== ENCOUNTER → 2022-08-04 | Outpatient (CLI) | payer BC ==
--- NOTE | 2022-08-04 21:12 | US ---
EXAMINATION TYPE: US thyroid st tissue head/neck DATE OF EXAM: 08/04/2022 COMPARISON: 08/10/17 CLINICAL HISTORY: E04.9 NONTOXIC GOITER, UNSPECIFIED. nontoxic thyroid goiter GLAND SIZE: Right Lobe: 5.5 x 1.8 x 1.7 cm Overall Parenchyma: heterogenous Left Lobe: 4.8 x 1.5 x 1.2 cm Overall Parenchyma: heterogeneous Isthmus Thickness: 0.2 cm NODULES RIGHT: # of nodules measured on right: 1 1. 1.6 X 1.5 x 1.1 cm, lower mid, TIRADS Score: 3 TIRADS Category 3: Mildly Suspicious Composition: Solid or almost completely solid (2 points). Echogenicity: Hyperechoic or isoechoic (1 point). Shape: Wider than tall (0 points). Margin: Smooth (0 points). Echogenic foci: None or large comet-tail artifacts (0 points) Recommendation: If >2.5cm: FNA; If >1.5cm: Follow up at 1,3,5 years LEFT: # of nodules measured on left: 1 1. 1.3 X 1.0 x 0.7 cm, lower mid, TIRADS Score: 4 TIRADS Category 4: Moderately Suspicious Composition: Solid or almost completely solid (2 points). Echogenicity: Hypoechoic (2 points). Shape: Wider than tall (0 points). Margin: Smooth (0 points). Echogenic foci: None or large comet-tail artifacts (0 points) Recommendation: If >1.5cm: FNA; If >1cm: Follow up at 1,2, 3,5 years ISTHMUS: # of nodules measured in the isthmus: 0 Bilateral neck scanned, no evidence of lymphadenopathy. IMPRESSION: Bilateral thyroid nodules that meet criteria for follow-up.
== END | disposition home or self-care (01) ==
LOC: RADUSWWP 17:00
PROVIDERS: ATTEND Family Medicine
DX: E04.2 Nontoxic multinodular goiter (principal)
CPT/HCPCS: 76536

== ENCOUNTER → 2023-07-09 | Outpatient (CLI) | payer BC ==
--- NOTE | 2023-07-12 15:40 | US ---
EXAMINATION TYPE: US thyroid st tissue head/neck DATE OF EXAM: 07/09/2023 COMPARISON: 08/04/2022 and 08/10/2017 CLINICAL INDICATION: Female, 28 years old with history of E04.2 NONTOXIC MULTINODULAR GOITER; MULTINO DULAR GOITER, F/U GLAND SIZE: Right Lobe: 5.7 x 1.6 x 2.2 cm Overall Parenchyma: heterogenous Left Lobe: 5.3 x 1.4 x 1.5 cm Overall Parenchyma: heterogenous Isthmus Thickness: 0.3 cm NODULES RIGHT: # of nodules measured on right: 0 LEFT: # of nodules measured on left: 0 ISTHMUS: # of nodules measured in the isthmus: 0 Bilateral neck scanned, no evidence of lymphadenopathy. Rack Room Worker notes: Marked heterogeneous thyroid bilaterally, similar findings when compare to prior U S in 2017. Nodules measured on prior scan in 2022 not appreciated on today's exam; wildlife biology technician felt that the thyroid gland was more heterogeneous than nodular. IMPRESSION: Thyromegaly with very heterogeneous glandular parenchyma. Correlate for goiter versus diffuse thyroid itis. The degree of heterogeneity makes it difficult to delineate individual nodules. The specific no dules identified on the prior 08/04/2022 exam are not as well appreciated currently.
== END | disposition home or self-care (01) ==
LOC: RADUSWWP 13:27
PROVIDERS: ATTEND Family Medicine
DX: E04.2 Nontoxic multinodular goiter (principal)
CPT/HCPCS: 76536

== ENCOUNTER → 2024-04-13 | Outpatient (CLI) | payer BC ==
--- NOTE | 2024-04-13 11:33 | MR ---
EXAMINATION TYPE: MR brain wo/w con DATE OF EXAM: 04/13/2024 9:50 AM COMPARISON: . CLINICAL INDICATION: Female, 29 years old with history of R51.9 Headaches; PHH, Headaches TECHNIQUE: Multi planar, multi sequence imaging was performed through the brain including: T1, T2, In version recovery, susceptibility weighted imaging and gradient echo imaging and Diffusion weighted im aging. The patient was then given intravenous contrast and multi planar, T1 fat-saturation images wer e obtained. IV Contrast: 9 mL Gadobutrol FINDINGS: Partial empty sella turcica with flattened appearance of pituitary. The machado-white junctions, ventricular system, basal cisterns appear unremarkable. Diffusion-weighted imaging shows no evidence of restricted diffusion to suggest acute/subacute infarct. Intracranial ar terial flow voids are maintained. Midline structures show no abnormality. The susceptibility weighted images do not reveal any evidence for micro-hemorrhage. After administration of gadolinium, no abnor mal enhancement is seen. The bone marrow signal is within normal limits. Paranasal sinuses and mastoid air cells: No significant paranasal sinus disease. Visualized orbits: Orbital contents are intact. IMPRESSION: 1. No evidence of intracranial mass, acute/subacute infarct, or abnormal enhancement. 2. Partial empty sella turcica correlate for idiopathic intracranial hypertension [facility], , 04/13/2024 11:30 AM
== END | disposition home or self-care (01) ==
LOC: RADMRIMAIN 09:06
PROVIDERS: ATTEND Psychiatry & Neurology Neurology
DX: G93.2 Benign intracranial hypertension (principal); H47.10 Unspecified papilledema
CPT/HCPCS: 70553; A9585